=== PATIENT | female | born 1995 | race Caucasian/White ===

== ENCOUNTER 2016-08-06 09:12 | Day surgery (SDC) | payer BC, MEDICAID ==
[~2016-08-06 09:12] MED LIST: Bupivacaine 0.5% 50 ML MDV ONE; Lidocaine 1% with EPINEPHrine 1:100,000 50 ML MDV ONE; Midazolam 1 MG/ML 2 ML SDV ONE; Propofol 200 MG/20 ML SDV ONE; fentaNYL 100 MCG/2 ML SDV ONE
[2016-08-06] MEDS ORDERED: Lactated Ringers 1,000 ML IV SCH (09:45)
[2016-08-06 12:50] VITALS: BP 144/83
--- NOTE | 2016-08-07 07:47 | OR ---
DATE OF PROCEDURE: 08/06/2016 PREOPERATIVE DIAGNOSIS: A 1.2 cm pigmented left groin skin lesion. POSTOPERATIVE DIAGNOSIS: A 1.2 cm pigmented left groin skin lesion. PROCEDURE: Excision of 1.2 cm pigmented left groin skin lesion. ANESTHESIA: IV anesthesia with monitored anesthesia care. INDICATIONS: This 21-year-old white female presented to the clinic last week with a pigmented lesion on her left groin to be excised. She refused to have this done under local only. She had a lesion on the contralateral side, apparently a couple of years ago, removed under IV anesthesia and wants to proceed with that option. She was then admitted through the outpatient department for excision of this 1.2 cm pigmented left groin skin lesion under IV anesthesia with monitored anesthesia care. I counseled her for the procedure including risks and alternatives, and she gave her informed consent to proceed. DESCRIPTION OF PROCEDURE: After adequate IV anesthesia was obtained, the patient's lower abdomen and groin were prepped and draped in the usual sterile fashion. Time-out was held. Lidocaine 1% with epinephrine in a 50:50 mix with 0.5% Marcaine was infiltrated about the lesion and an elliptical incision was then used to excise the lesion parallel to its long axis. It measured 1.2 cm in greatest dimension. This was excised with narrow margins. The specimen was sent to Pathology. The incision was closed with interrupted 3-0 Vicryl suture for the deep tissues and 5-0 Vicryl was used in a subcuticular stitch for the skin. Dermabond was applied. The patient tolerated the procedure well and was brought to the recovery room in good condition. Tonio Shearer MD /[id number]
== END 2016-08-06 13:14 | disposition home or self-care (01) ==
LOC: JP.SDS 09:12
PROVIDERS: ATTEND Surgery
DX: D22.5 Melanocytic nevi of trunk (principal); Z79.899 Other long term (current) drug therapy
CPT/HCPCS: 11402; 81025; J2250; J2704; J3010; J7120; 88305

== ENCOUNTER 2019-11-17 07:54 | Emergency (ER) | payer BC, MEDICAID ==
[2019-11-17 08:08] VITALS: BP 162/98; PULSE 78
--- NOTE | 2019-11-17 08:09 | EDM.PDOC ---
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 below) (took no medication prior to arrival in the emergency department today) Pelvic Pain Score (Numeric/FACES): 9 - Related Data Allergies Allergy/AdvReac Type Severity Reaction Status Date / Time codeine Allergy Cannot Verified 08/03/16 14:37 Remember Home Meds: Home Meds traZODone 50 mg PO BEDTIME 12/17/15 [History] Triamcinolone Acetonide [Triamcinolone Acetonide 0.1% Crm] 15 gm TOP DAILY PRN 08/03/16 [History] SUMAtriptan [Imitrex] 50 mg PO ASDIRECTED PRN 11/17/19 [History] Past Medical History HEENT History: Reports: None Genitourinary History: Reports: Pyelonephritis, UTI, Recurrent 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) Social & Family History - Caffeine Use Caffeine Use: Reports: Tea - Living Situation & Occupation Living situation: Reports: with Significant Other Occupation: Employed ED ROS GENERAL - Review of Systems Review Of Systems: See Below Constitutional: Reports: Malaise. Denies: Fever, Diaphoresis HEENT: Reports: No Symptoms Respiratory: Denies: Shortness of Breath Cardiovascular: Denies: Chest Pain Endocrine: Reports: Fatigue GI/Abdominal: Reports: Abdominal Pain. Denies: Nausea, Vomiting : Reports: Other (Vaginal bleeding for the last week. Allegedly using 1 pad per hour. This morning had cramping lower abdominal pain. ) Neurological: Reports: No Symptoms Psychiatric: Reports: No Symptoms ED EXAM, GI/ABD - Physical Exam Exam: See Below Exam Limited By: No Limitations General Appearance: Alert, Anxious, Obese Ears: Normal External Exam Nose: Normal Inspection Head: Atraumatic, Normocephalic Respiratory/Chest: No Respiratory Distress, Lungs Clear Cardiovascular: Normal Peripheral Pulses, Regular Rate, Rhythm, No Murmur, Other (Palpate a right radial pulse of 70 and regular). No: Tachycardia (Female) Exam: Normal External Exam, Vaginal Bleeding (Very slight oozing of dark blood from the cervical os. No vaginal trauma or mass noted). No: Cervical Dilatation, Cervical Lesions, Vaginal Tears Neurological: Alert, Oriented, Normal Cognition Psychiatric: Anxious, Depressed Mood Skin Exam: Warm, Dry Lymphatic: No Adenopathy Course - Vital Signs Text/Narrative:: Patient has a previous history of vaginal bleeding. Apparently was previously on oral normal and therapy which the patient alleges aggravated her migraines. She is quite certain that the IUD implanted is "Mirena". She has not attempted to contact the physician who placed the IUD. Lab results show no evidence of anemia or thrombocytopenia. The patient is not tachycardic or hypotensive. Vaginal exam does not show any excessive bleeding or hemorrhage. Thickened endometrium with IUD in place. No other mass. Shows many white blood cells, positive leukocyte esterase, and bacteria present consistent with urinary tract infection Last Recorded V/S: Last Vital Signs Temp 37.3 C 11/17/19 08:15 Pulse 78 11/17/19 08:15 Resp 16 11/17/19 08:15 BP 162/98 H 11/17/19 08:15 Pulse Ox 96 11/17/19 08:15 - Orders/Labs/Meds Orders: Active Orders 24 hr Category Date Time Status Pelvis Non OB Comp [US] Stat Exams 11/17/19 08:35 Taken Transvaginal Non OB [US] Stat Exams 11/17/19 Taken Labs: Laboratory Tests 11/17/19 11/17/19 11/17/19 Range/Units 08:55 08:55 08:55 WBC 13.1 H (4.5-11.0) K/uL RBC 4.83 (3.30-5.50) M/uL Hgb 13.5 D (12.0-15.0) g/dL Hct 41.3 (36.0-48.0) % MCV 86 (80-98) fL MCH 28 (27-31) pg MCHC 33 (32-36) % Plt Count 308 (150-400) K/uL PT 10.7 (9.5-12.0) sec INR 0.98 (0.80-1.20) Sodium 139 L (140-148) mmol/L Potassium 3.6 (3.6-5.2) mmol/L Chloride 103 (100-108) mmol/L Carbon Dioxide 26 (21-32) mmol/L Anion Gap 13.6 (5.0-14.0) mmol/L BUN 8 (7-18) mg/dL Creatinine 0.8 (0.6-1.0) mg/dL Est Cr Clr Drug Dosing 110.33 mL/min Estimated GFR (MDRD) > 60 (>60) Glucose 131 H (74-106) mg/dL Calcium 8.5 (8.5-10.1) mg/dL Total Bilirubin 1.0 (0.2-1.0) mg/dL AST 34 D (15-37) U/L ALT 75 D (12-78) U/L Alkaline Phosphatase 70 (46-116) U/L Total Protein 7.0 (6.4-8.2) g/dL Albumin 3.8 (3.4-5.0) g/dL Globulin 3.2 (2.3-3.5) g/dL Albumin/Globulin Ratio 1.2 (1.2-2.2) Urine Color (YELLOW) Urine Appearance (CLEAR) Urine pH (5.0-8.0) Ur Specific [place] (1.008-1.030) Urine Protein (NEGATIVE) mg/dL Urine Glucose (UA) (NEGATIVE) mg/dL Urine Ketones (NEGATIVE) mg/dL Urine Occult Blood (NEGATIVE) Urine Nitrite (NEGATIVE) Urine Bilirubin (NEGATIVE) Urine Urobilinogen (0.2-1.0) EU/dL Ur Leukocyte Esterase (NEGATIVE) Urine RBC (0-5) Urine WBC (0-5) Ur Epithelial Cells Amorphous Sediment Urine Bacteria Urine Mucus Urine HCG, Qual 11/17/19 11/17/19 Range/Units 09:36 09:36 WBC (4.5-11.0) K/uL RBC (3.30-5.50) M/uL Hgb (12.0-15.0) g/dL Hct (36.0-48.0) % MCV (80-98) fL MCH (27-31) pg MCHC (32-36) % Plt Count (150-400) K/uL PT (9.5-12.0) sec INR (0.80-1.20) Sodium (140-148) mmol/L Potassium (3.6-5.2) mmol/L Chloride (100-108) mmol/L Carbon Dioxide (21-32) mmol/L Anion Gap (5.0-14.0) mmol/L BUN (7-18) mg/dL Creatinine (0.6-1.0) mg/dL Est Cr Clr Drug Dosing mL/min Estimated GFR (MDRD) (>60) Glucose (74-106) mg/dL Calcium (8.5-10.1) mg/dL Total Bilirubin (0.2-1.0) mg/dL AST (15-37) U/L ALT (12-78) U/L Alkaline Phosphatase (46-116) U/L Total Protein (6.4-8.2) g/dL Albumin (3.4-5.0) g/dL Globulin (2.3-3.5) g/dL Albumin/Globulin Ratio (1.2-2.2) Urine Color Red A (YELLOW) Urine Appearance Turbid A (CLEAR) Urine pH 7.5 (5.0-8.0) Ur Specific [place] 1.025 (1.008-1.030) Urine Protein 100 H (NEGATIVE) mg/dL Urine Glucose (UA) Negative (NEGATIVE) mg/dL Urine Ketones Negative (NEGATIVE) mg/dL Urine Occult Blood Large H (NEGATIVE) Urine Nitrite Negative (NEGATIVE) Urine Bilirubin Small H (NEGATIVE) Urine Urobilinogen 1.0 (0.2-1.0) EU/dL Ur Leukocyte Esterase Large H (NEGATIVE) Urine RBC >100 H (0-5) Urine WBC 75-100 H (0-5) Ur Epithelial Cells Many Amorphous Sediment Few Urine Bacteria Moderate Urine Mucus Moderate Urine HCG, Qual Negative Meds: Medications Discontinued Medications Generic Name Dose Route Start Last Admin Trade Name Freq PRN Reason Stop Dose Admin Acetaminophen 1,000 mg 11/17/19 08:36 11/17/19 08:46 Tylenol Extra Strength PO 11/17/19 08:37 1,000 mg ONETIME ONE Administration Departure - Departure Time of Disposition: 10:13 Disposition: Home, Self-Care 01 Condition: Good Clinical Impression: Vaginal bleeding Urinary tract infection Qualifiers: Urinary tract infection type: acute cystitis Hematuria presence: with hematuria Qualified Code(s): N30.01 - Acute cystitis with hematuria - Discharge Information Instructions: Antibiotic Medicine, Adult, [id number], Urinary Tract Infection, Adult, [id number], Dysfunctional Uterine Bleeding Referrals: PCP,None [Primary Care Provider] - Forms: ED Department Discharge Additional Instructions: Take antibiotic as prescribed. You can take acetaminophen up to 1000 mg orally 4 times a day. Consider taking ibuprofen 400 mg orally 3 times a day with food on your stomach. Follow-up with youth care specialist or primary care doctor make sure infection has cleared. Ideally you should follow-up with physician who placed your IUD. Ultrasound shows IUD in good position. Sepsis Event Note (ED) - Focused Exam Vital Signs: Vital Signs Temp Pulse Resp BP Pulse Ox 11/17/19 08:15 37.3 C 78 16 162/98 H 96 11/17/19 08:06 37.3 C 78 16 162/98 H 96 - My Orders Last 24 Hours: My Active Orders 11/17/19 Transvaginal Non OB [US] Stat 11/17/19 08:35 Pelvis Non OB Comp [US] Stat - Assessment/Plan Last 24 Hours: My Active Orders 11/17/19 Transvaginal Non OB [US] Stat 11/17/19 08:35 Pelvis Non OB Comp [US] Stat
[2019-11-17] MEDS ORDERED: Acetaminophen 500 MG Tab PO ONE (08:36)
--- NOTE | 2019-11-19 09:03 | US ---
Transvaginal Non OB, Pelvis Non OB Comp CLINICAL HISTORY: Vaginal bleeding, IUD placed 2 months ago FINDINGS: Uterus measures 7.7 x 4.5 x 5.2 cm. Endometrial stripe is thickened at 21.2 cm. There is some fluid and clot. There is a 90 which appears in essentially normal position Right ovary measures 4.2 x 4.0 x 2.2 cm. There is normal blood flow Left ovary measures 3.4 x 5.4 x 3.8 cm. There is normal blood flow No free fluid seen IMPRESSION: Thickening of the endometrium with endometrial cavity fluid and clot. The IUD appears to be normal position
== END 2019-11-17 10:33 | disposition home or self-care (01) ==
LOC: JP.ED 07:54
DX: N93.9 Abnormal uterine and vaginal bleeding, unspecified (principal); N30.01 Acute cystitis with hematuria; E66.9 Obesity, unspecified; Z68.30 Body mass index [BMI] 30.0-30.9, adult; Z88.5 Allergy status to narcotic agent
CPT/HCPCS: 36415; 76830; 76856; 80053; 81001; 81025; 85027; 85610; 99284; A9270

== ENCOUNTER 2020-12-01 10:40 | Emergency (ER) | payer BC ==
[2020-12-01] MEDS ORDERED: Ketorolac 30 MG/ML SDV IM ONE (11:06)
--- NOTE | 2020-12-01 11:14 | EDM.PDOC ---
ED HPI GENERAL MEDICAL PROBLEM - General Chief Complaint: Flank Pain Stated Complaint: LT SIDE PAIN Time Seen by Provider: 12/01/20 11:00 Source of Information: Reports: Patient History Limitations: Reports: No Limitations - History of Present Illness INITIAL COMMENTS - FREE TEXT/NARRATIVE: 25-year-old female woke at 6 AM this morning with intense left flank pain radiating around to the left lateral abdomen. She is nauseated and cannot get comfortable. She was fine when she went to bed last night, she has no dysuria or fever. No history of renal stones. When asked if she could be she said it is "possible". She is very uncomfortable. Onset: Sudden (Pain started fairly suddenly at 6 AM) Duration: Other (Pain is been persistent for the past 5 hours) Location: Reports: Other (Left flank,) Left Flank Pain Score (Numeric/FACES): 9 - Related Data Allergies Allergy/AdvReac Type Severity Reaction Status Date / Time codeine Allergy Cannot Verified 12/01/20 11:07 Remember Home Meds: Home Meds Triamcinolone Acetonide [Triamcinolone Acetonide 0.1% Crm] 15 gm TOP DAILY PRN 08/03/16 [History] SUMAtriptan [Imitrex] 50 mg PO ASDIRECTED PRN 11/17/19 [History] Past Medical History - Past Health History Medical/Surgical History: Denies Medical/Surgical History HEENT History: Reports: None Genitourinary History: Reports: Pyelonephritis, UTI, Recurrent 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 Endocrine/Metabolic History: Reports: Obesity/BMI 30+ Dermatologic History: Reports: Psoriasis - Infectious Disease History Infectious Disease History: Reports: Chicken Pox - Past Surgical History HEENT Surgical History: Reports: Myringotomy w Tube(s), Tonsillectomy Female Surgical History: Reports: Other (See Below) (IUD placed by COMPLIANCE PROFESSIONAL physician at [facility]) Social & Family History - Tobacco Use Tobacco Use Status *Q: Never Tobacco User - Caffeine Use Caffeine Use: Reports: None - Recreational Drug Use Recreational Drug Use: No - Living Situation & Occupation Living situation: Reports: with Significant Other Occupation: Employed ED ROS GENERAL - Review of Systems Review Of Systems: See Below Constitutional: Reports: Malaise. Denies: Fever, Chills HEENT: Reports: No Symptoms Respiratory: Denies: Shortness of Breath Cardiovascular: Denies: Chest Pain GI/Abdominal: Reports: Abdominal Pain, Nausea. Denies: Vomiting : Reports: Flank Pain, Urgency Musculoskeletal: Reports: Back Pain (Left flank area) Skin: Reports: No Symptoms Neurological: Reports: No Symptoms Psychiatric: Reports: No Symptoms ED EXAM, GENERAL - Physical Exam Exam: See Below Exam Limited By: No Limitations General Appearance: Alert, Moderate Distress Eye Exam: Bilateral Eye: Normal Inspection Head: Atraumatic Respiratory/Chest: No Respiratory Distress, Lungs Clear Cardiovascular: Regular Rate, Rhythm GI/Abdominal: Soft, Non-Tender Back Exam: No: CVA Tenderness (R), CVA Tenderness (L) Neurological: Alert, Oriented, No Motor/Sensory Deficits Psychiatric: Anxious Skin Exam: Warm, Dry Course - Vital Signs Last Recorded V/S: Last Vital Signs Temp 97.6 F 12/01/20 11:11 Pulse 92 12/01/20 11:28 Resp 16 12/01/20 11:28 BP 146/92 H 12/01/20 11:28 Pulse Ox 97 12/01/20 11:28 - Orders/Labs/Meds Labs: Laboratory Tests 12/01/20 12/01/20 Range/Units 11:05 11:07 Urine Color Yellow (YELLOW) Urine Appearance Cloudy A (CLEAR) Urine pH 7.0 (5.0-8.0) Ur Specific [place] 1.025 (1.008-1.030) Urine Protein Negative (NEGATIVE) mg/dL Urine Glucose (UA) Negative (NEGATIVE) mg/dL Urine Ketones Negative (NEGATIVE) mg/dL Urine Occult Blood Moderate H (NEGATIVE) Urine Nitrite Negative (NEGATIVE) Urine Bilirubin Negative (NEGATIVE) Urine Urobilinogen 0.2 (0.2-1.0) EU/dL Ur Leukocyte Esterase Small H (NEGATIVE) Urine RBC 50-75 H (0-5) Urine WBC 5-10 H (0-5) Ur Epithelial Cells Many Amorphous Sediment Not seen Urine Bacteria Not seen Urine Mucus Not seen Urine HCG, Qual Negative Meds: Medications Discontinued Medications Generic Name Dose Route Start Last Admin Trade Name Freq PRN Reason Stop Dose Admin Hydromorphone HCl 1 mg 12/01/20 12:37 12/01/20 12:58 Hydromorphone 1 Mg/Ml Syringe IM 12/01/20 12:38 1 mg ONETIME ONE Administration Ketorolac Tromethamine 30 mg 12/01/20 11:06 12/01/20 11:10 Ketorolac 30 Mg/Ml Sdv IM 12/01/20 11:07 30 mg ONETIME ONE Administration - Re-Assessments/Exams Free Text/Narrative Re-Assessment/Exam: 12/01/20 12:38 UA was obtained that was negative for , was positive for RBCs. There were a few WBCs but no bacteria. A CT was then obtained without contrast and confirmed a small 4mm right ureteral stone that is nearly passed at the valve of the wall of the bladder and the right distal ureter, there is a small amount of hydronephrosis. Patient had some decent pain control from 30 mg of IM Toradol but pain was coming back so she was given 1 mg of IM Dilaudid, reassured this will likely pass during the course of the day, and given a few more doses of Toradol as well as Percocet. If she is still having symptoms in 24 hours she can return or if she worsens at any time such as vomiting the medication or having uncontrolled pain she can return. 12/01/20 13:06 IMPRESSION: 1. Calcification in the region of the left ureterovesicular junction favored represent 4 mm UVJ stone. Upstream ureter appears mildly prominent with mild surrounding inflammatory changes and mild left hydronephrosis. Departure - Departure Time of Disposition: 13:32 Disposition: Home, Self-Care 01 Clinical Impression: Renal colic on left side, Left nephrolithiasis - Discharge Information Instructions: Kidney Stones, [id number] Referrals: PCP,None [Primary Care Provider] - Forms: ED Department Discharge Care Plan Goals: Add 1 toTake 1 dose of ketorolac every 6 hours until pain is completely gone, 2 Percocet every 4 hours if needed for extra pain control. Consider rechecking in 24 hours if not completely pain-free, or return anytime if pain is uncontrolled with medications or you are vomiting the medications develop a fever or other concerns. Sepsis Event Note (ED) - Evaluation Sepsis Screening Result: No Definite Risk - Focused Exam Vital Signs: Vital Signs Temp Pulse Resp BP Pulse Ox 12/01/20 11:28 92 16 146/92 H 97 12/01/20 11:11 97.6 F 103 H 18 180/118 H 98 08/26/21 11:02 97.6 F 103 H 18 180/118 H 98
[2020-12-01 11:29] VITALS: BP 146/92; PULSE 92
[2020-12-01] MEDS ORDERED: HYDROmorphone 1 MG/ML Syringe IM ONE (12:37)
--- NOTE | 2020-12-01 13:03 | CRLCT ---
For Patients: As a result of the Century Cures Act, medical imaging exams and procedure reports are released immediately into your electronic medical record. You may view this report before your referring provider. If you have questions, please contact your health care provider. CLINICAL INFORMATION: Left flank pain, concern for renal calculus. TECHNIQUE: CT of the abdomen and pelvis was obtained without administration of intravenous contrast. Coronal and sagittal reformatted images were generated. Contrast: None. COMPARISON: None.. FINDINGS: Lower Chest: Lung bases: No consolidation, pleural effusion, or pneumothorax. No suspicious pulmonary nodule in the visualized lungs. Heart/Pericardium: Unremarkable. Abdomen/Pelvis: Liver: Normal in size. Attenuation measures at the low end of normal. No suspicious hepatic lesion. No intrahepatic or extrahepatic biliary ductal dilatation. Gallbladder: Nondilated without radiopaque cholelithiasis. Spleen: Unremarkable. Adrenal glands: No focal adrenal lesion. Pancreas: No focal pancreatic lesion or main duct dilatation. No surrounding inflammatory changes. Kidneys: No exophytic renal lesion. Mild left hydronephrosis.. Ureters: Hyperdensity in the region of the left ureterovesicular junction measuring 4 mm, favored to represent urolith. More proximal left ureter is mildly prominent with mild surrounding inflammatory changes. Urinary bladder: Limited evaluation due to underdistention. No focal wall thickening. Vascular: Abdominal aorta is normal in caliber. Bowel: Evaluation is limited without enteric contrast. No evidence of bowel obstruction. No focal bowel wall thickening. Lymph nodes: No retroperitoneal, mesenteric, inguinal, or pelvic adenopathy by CT criteria. Multiple prominent left retroperitoneal lymph nodes, favor reactive. Reproductive structures: IUD noted in the uterus. No suspicious adnexal mass. Soft tissues/Peritoneum: No abdominal/pelvic ascites or free intraperitoneal air. Fat density structure in the posterior left peritoneum measuring 2.2 cm, benign in appearance (series 2, image 129). Bones: No acute fracture or aggressive appearing osseous lesion. IMPRESSION: 1. Calcification in the region of the left ureterovesicular junction favored represent 4 mm UVJ stone. Upstream ureter appears mildly prominent with mild surrounding inflammatory changes and mild left hydronephrosis. Please note that all CT scans at this facility use dose modulation, iterative reconstruction, and/or weight-based dosing when appropriate to reduce radiation dose to as low as reasonably achievable. Dictated by London Ma MD @ 12/01/2020 1:01:[address] London Ma @ Dec 01 2020 1:01PM
== END 2020-12-01 13:31 | disposition home or self-care (01) ==
LOC: JP.ED 10:40
DX: N13.2 Hydronephrosis with renal and ureteral calculous obstruction (principal); E66.9 Obesity, unspecified; Z88.5 Allergy status to narcotic agent; Z68.41 Body mass index [BMI] 40.0-44.9, adult
CPT/HCPCS: 74176; 81001; 81025; 96372; 99284; J1170; J1885

== ENCOUNTER 2021-05-20 18:14 | Emergency (ER) | payer BC ==
[2021-05-20 18:20] VITALS: BP 151/87; PULSE 74
[2021-05-20] MEDS: Ketorolac 30 MG/ML SDV IM ONE (18:30)
== END 2021-05-20 19:57 | disposition home or self-care (01) ==
LOC: JP.ED 18:14
DX: S83.004A Unspecified dislocation of right patella, initial encounter (principal); E66.9 Obesity, unspecified; Z68.41 Body mass index [BMI] 40.0-44.9, adult; Z88.5 Allergy status to narcotic agent; W01.0XXA Fall on same level from slipping, tripping and stumbling without subsequent striking against object, initial encounter; Y92.480 Sidewalk as the place of occurrence of the external cause
CPT/HCPCS: 73562-26-RT; 73562-RT; 96372; 99283; J1885